=== PATIENT | female | born 1990 | race Caucasian/White ===

== ENCOUNTER 2017-04-12 13:16 | Inpatient (IN) | payer MEDICAID ==
[~2017-04-12] VITALS: Ht 157.5 cm; Wt 62.8 kg
[2017-04-12 13:21] VITALS: BP 112/63; PULSE 78; RESP 18; Ht 157.5 cm; Wt 62.8 kg
[2017-04-12 13:29] VITALS: RESP 18
--- NOTE | 2017-04-12 14:06 | TRIAGE ---
OB Triage Datetime Report Generated by CPN: 04/12/2017 14:06 Datetime: 04/12/2017 13:59 Maternal Assessment Level of Consciousness: Fully Conscious DTR's/Clonus: DTRs 1+ Headache: Denies Blurred Vision: No Respiratory Effort: Unlabored Breath Sounds, Left: Clear and Equal Breath Sounds, Right: Clear and Equal Nausea/Vomiting: Denies RUQ Epigastric Pain: Denies Facial Edema: None Labor Evaluation Frequency: 6-12 Monitor Mode: External Duration (sec)2399: 60-90 Quality: Mild Pattern: Normal: <= 5 Contractions in 10 Minutes Resting Tone Noank: Relaxed Heart Rate FHR Baseline Rate: 135 Monitor Mode: External US Variability: Moderate 6-25 bpm Accelerations: 15X15 Decelerations: None Category: Category I Pain Assessment Pain Scale: 8 Pain Presence: Intermittent Pain Type: Contraction Pain Location: Back Pain Goal: 3 Pain Relief Measures: Pain Medication Given Membrane Status: Intact Datetime: 04/12/2017 13:44 Maternal Assessment Level of Consciousness: Fully Conscious DTR's/Clonus: DTRs 1+ Headache: Denies Blurred Vision: No Respiratory Effort: Unlabored Breath Sounds, Left: Clear and Equal Breath Sounds, Right: Clear and Equal Nausea/Vomiting: Denies RUQ Epigastric Pain: Denies Facial Edema: None Labor Evaluation Frequency: 2-12 Monitor Mode: External Duration (sec)2399: 60-80 Quality: Mild Pattern: Normal: <= 5 Contractions in 10 Minutes Resting Tone Noank: Relaxed Heart Rate FHR Baseline Rate: 135 Monitor Mode: External US Variability: Moderate 6-25 bpm Accelerations: 15X15 Decelerations: None Category: Category I Pain Assessment Pain Scale: 8 Pain Presence: Constant Pain Type: Contraction Pain Location: Back Pain Goal: 3 Pain Relief Measures: Pain Medication Given Membrane Status: Intact Datetime: 04/12/2017 13:18 Vaginal Exam Dilatation (cms): 3.5 Effacement (%): 80 Station: -2 Exam By: KAYLEEN MCKINNEY Vaginal Bleeding: None Cervix, Consistency: Soft Cervix, Position: Midposition Presentation 'A': Cephalic Datetime: 04/12/2017 13:15 Assessment Type: Triage Maternal Assessment Level of Consciousness: Fully Conscious DTR's/Clonus: DTRs 2+; No Clonus Headache: Denies Blurred Vision: No Respiratory Effort: Unlabored; Regular Rhythm; Equal Expansion Breath Sounds, Left: Clear and Equal Breath Sounds, Right: Clear and Equal Nausea/Vomiting: Denies RUQ Epigastric Pain: Denies Lower Extremities Edema: None Degree: None Upper Extremities Edema: None Degree: None Facial Edema: None Fall Risk Assessment History of Falling: (0) No Secondary Diagnosis: (0) No Ambulatory Aid: (0) Bedrest/Nurse Assist IV Therapy: (0) No Gait: (0) Normal/Bedrest/Immobile Mental Status: (0) Oriented to Own Ability Fall Score: 0 Fall Risk Score Definition: No Risk: No action required Datetime: 04/12/2017 13:03 Time of Arrival: 04/12/2017 13:03 EGA: 38.5 Arrived By: Ambulatory Arrived From: Home Chief Complaint: PT CAME IN C/O UCS Movement: Present Contractions: Regular Time Contractions Began: 04/12/2017 09:00 Contractions: 5 Rupture of Membranes: Denies Vaginal Discharge: Denies Recent Sexual Intercouse: Denies Abdominal Trauma: Not Applicable Additional Patient Complaints: NONE Time Provider Notified: 04/12/2017 14:01 Provider Notified: KAREN Initial Plan: MONITOR AND VE
[2017-04-12] MEDS: LACTATED RINGER'S 1,000 ML IV SCH ×2 (15:13→20:02)
[2017-04-12] MEDS ORDERED: METHYLERGONOVINE 0.2 MG INJ IM PRN ×2 (15:30→21:30)
[2017-04-12] MEDS ORDERED: AMPICILLIN 2 GM/NS (PMX) 100 ML IV ONE (15:30)
[2017-04-12] MEDS ORDERED: CARBOPROST 250 MCG INJ IM PRN ×2 (15:30→21:30)
[2017-04-12] MEDS ORDERED: MISOPROSTOL 200 MCG TAB PR PRN ×2 (15:30→21:30)
[2017-04-12] MEDS ORDERED: OXYTOCIN 30 UNITS/LR 500 ML IV PRN ×2 (15:30→21:30)
[2017-04-12] MEDS ORDERED: LIDOCAINE 1% (MPF) 30 ML INJ INJ PRN (15:30)
[2017-04-12] MEDS ORDERED: HYDROCODONE/APAP (5/325) TAB PO PRN ×2 (15:30→21:30)
[2017-04-12] MEDS ORDERED: BUTORPHANOL 2 MG INJ IV PRN (15:30)
[2017-04-12] MEDS ORDERED: LACTATED RINGER'S 1,000 ML IV PRN (16:00)
[2017-04-12 16:20] LABS: BASOPHILS % 0.2 % (0.0-2.0); EOSINOPHILS % 0.1 % (0.0-7.0); HEMATOCRIT 30.9 % (37.0-47.0); HEMOGLOBIN 10.2 g/dl (12.0-16.0); LYMPHOCYTES # 1.7 10^3/ul (0.8-2.9); LYMPHOCYTES % 18.2 % (15.0-51.0); MEAN CORPUSCULAR HEMOGLOBIN 28.3 pg (29.0-33.0); MEAN CORPUSCULAR VOLUME 85.8 fl (82.0-101.0); MEAN PLATELET VOLUME 12.2 fl (7.4-10.4); MONOCYTE # 0.6 10^3/ul (0.3-0.9); MONOCYTES % 5.8 % (0.0-11.0); NEUTROPHIL # 7.1 10^3/ul (1.6-7.5); NEUTROPHILS % 75.2 % (39.0-77.0); PLATELET COUNT 227 10^3/UL (140-415); RED CELL DISTRIBUTION WIDTH 13.2 % (11.5-14.5); WHITE BLOOD COUNT 9.4 10^3/ul (4.8-10.8)
[2017-04-12 17:03] LABS: INR 0.95; PROTIME 12.7 Sec (12.2-14.2)
[2017-04-12 17:04] LABS: PARTIAL THROMBOPLASTIN TIME 27.3 Sec (25.0-35.0)
[2017-04-12] MEDS ORDERED: FENTAnyl 2MCG/ML-ROPIV 0.2% 100 ML ONE (17:45)
[2017-04-12] MEDS ORDERED: FENTAnyl 2MCG/ML-ROPIV 0.2% 100 ML BAG EPI SCH (18:00)
[2017-04-12] MEDS ORDERED: NALOXONE (0.4 MG/ML) INJ IV PRN (18:00)
--- NOTE | 2017-04-12 18:49 | HP ---
Date/Time of Note Date/Time of Note DATE: 04/12/17 TIME: 18:42 OB - History Hx of Present Free Text/Dictation 27 y.o A0 at 38w5d c/o u.c's q5min with intact membrane course was unevenful except UTI. initial exam 3-4/8o% -2 admitted for expectant management Chief Complaint: u.cs Estimated Due Date: Apr 21, 2017 : 3 Para: 2 Spontaneous : 0 Therapeutic : 0 Care: Limited Care Ultrasounds: Normal mid trimester US Obstetrical Complications: None Medical Complications: None Past Family/Social History * Past Medical, Surgical, Family and Obstetric Histories reviewed from chart. Blood Type: O+ Rubella: unknown RPR/VDRL: Unknown GBS Status: Unknown HBsAG: Unknown OB Admission Exam Vital Signs Vital Signs Vital Signs Date Time Temp Pulse Resp B/P Pulse Ox O2 Delivery O2 Flow Rate FiO2 04/12/17 13:29 98.6 18 99 Room Air 04/12/17 13:21 78 Physical Exam HEENT: WNL Heart: Rhythm Normal Lungs: Clear, Equal Abdomen: WNL Extremities: Normal Reflexes: Normal Cervical Dilatation: 4cm Effacement: 75% Station: -2 Membranes: Intact Amniotic Fluid: Unevaluable Accelerations: Accelerations Present Decelerations: No Decelerations Varibility: Moderate Contractions on Admission: 6-10 Minutes Apart Intensity: Moderate Last 72 hours Lab Results CBC & BMP 04/12/17 16:12 OB Assessment/Plan Reason for admission: active labor Other Assessment: IUP 38w5d Plan: Expectant Management JABIER JONES MD Apr 12, 2017 18:49
[2017-04-12] MEDS ORDERED: AMPICILLIN 1 GM/NS (PMX) 50 ML IV SCH (19:30)
[2017-04-12] MEDS ORDERED: OXYTOCIN 30 UNITS/LR 500 ML IV SCH ×2 (20:00)
[2017-04-12] MEDS ORDERED: IBUPROFEN 600 MG TAB PO PRN ×2 (20:00→22:00)
[2017-04-12] MEDS ORDERED: MINERAL OIL LIGHT 10 ML VIAL TOP ONE (20:30)
--- NOTE | 2017-04-12 21:28 | LDN ---
Date/Time of Note Date/Time of Note DATE: 04/12/17 TIME: 21:26 Delivery Summary of a viable baby girl weighing 2630 grams, or 5# 13 oz, 20.5" long, and with Apgars of 9/10. Weeks of Gestation 38w 5d Placenta Delivered: Spontaneously Meconium: none Episiotomy: No Perineal laceration: 0 Anesthesia type: Epidural Estimated blood loss: 150 Sponge & Needle done & correct: Yes All needle counts correct: Yes Any foreign bodies felt in the: No (vagina) Problems: Delivery Information Sex Sex: female Apgars 1 Minute: 9 5 Minute: 10 Suctioning Nose & mouth suctioned at lizabeth: Yes Delee suction performed: No Umbilical Cord Umbilical cord with: 3 Vessels Cord presentations: no nuchal cord Cord Blood was obtained: Yes Mother & Baby Disposition Disposition Mom & Baby to Maternity; Good: Yes Baby to NICU: No LUIS EDUARDO MACK MD Apr 12, 2017 21:28
[2017-04-12] MEDS ORDERED: LANOLIN 7 GM TUBE TOP PRN (21:30)
[2017-04-12 23:30] VITALS: BP 117/61; PULSE 69; RESP 21
[2017-04-13] MEDS: LACTATED RINGER'S 1,000 ML IV* SCH ×3 (01:44→13:23)
[2017-04-13 04:00] VITALS: BP 107/59; PULSE 62; RESP 20
[2017-04-13] MEDS: IBUPROFEN 600 MG TAB PO SCH ×4 (06:24→17:20)
[2017-04-13 08:32] VITALS: BP 104/71; PULSE 64; RESP 18
[2017-04-13 09:57] LABS: BASOPHILS % 0.2 % (0.0-2.0); EOSINOPHILS % 0.2 % (0.0-7.0); HEMATOCRIT 26.3 % (37.0-47.0); HEMOGLOBIN 8.3 g/dl (12.0-16.0); LYMPHOCYTES # 2.2 10^3/ul (0.8-2.9); LYMPHOCYTES % 22.8 % (15.0-51.0); MEAN CORPUSCULAR HEMOGLOBIN 27.3 pg (29.0-33.0); MEAN CORPUSCULAR HGB CONC 31.6 g/dl (32.0-37.0); MEAN CORPUSCULAR VOLUME 86.5 fl (82.0-101.0); MEAN PLATELET VOLUME 12.3 fl (7.4-10.4); MONOCYTE # 0.5 10^3/ul (0.3-0.9); MONOCYTES % 5.5 % (0.0-11.0); NEUTROPHIL # 6.8 10^3/ul (1.6-7.5); NEUTROPHILS % 70.9 % (39.0-77.0); PLATELET COUNT 186 10^3/UL (140-415); RED BLOOD COUNT 3.04 10^6/ul (4.20-5.40); RED CELL DISTRIBUTION WIDTH 13.2 % (11.5-14.5); WHITE BLOOD COUNT 9.6 10^3/ul (4.8-10.8)
[2017-04-13 12:00] VITALS: BP 109/63; PULSE 75; RESP 18
--- NOTE | 2017-04-13 12:19 | QN ---
Documentation Comment ppd1 pt d oing well vss exam wnl ppd1 continue care GISSELLE PITTMAN MD Apr 13, 2017 12:19
[2017-04-13] MEDS ORDERED: INFLUENZA VIRUS VACCINE 0.5 ML (DISPENSING) IM* ONE (16:00)
[2017-04-13 16:20] VITALS: BP 108/66; PULSE 75; RESP 19
[2017-04-13 20:00] VITALS: BP 118/75; PULSE 73; RESP 20
[2017-04-14 04:00] VITALS: BP 110/58; PULSE 69; RESP 19
[2017-04-14] MEDS: IBUPROFEN 600 MG TAB PO SCH ×3 (05:27→11:17)
[2017-04-14 08:20] VITALS: BP 107/65; PULSE 68; RESP 18
[2017-04-14] MEDS ORDERED: DIPHTH/TET/ACEL PERTUSS (ADULT) 0.5 ML VIAL IM* ONE (09:00)
[2017-04-14 14:08] LABS: RUBELLA ANTIBODY - IGG 3.71 index
[2017-04-14 16:10] VITALS: BP 114/65; PULSE 85; RESP 17
--- NOTE | 2017-04-14 18:00 | PD.PPDC ---
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 Diagnosis Final Diagnosis: s/p normal vaginal delivery Condition Patient Condition: Stable Diet Diet: Resume Regular Diet Activity/Restrictions Restrictions: No Exercising No Lifting Minimize Walking Minimize Stair-climbing No Sexual Activity Nothing in the Vagina No [place] No Tampons, douche Follow-up Follow-up with Physician: 2, Week/Weeks Return to clinic for [employer] Instructions: Fever greater than 101 Chills Worsening abdominal pain Excessive Vaginal Bleeding More than 2 pads per hour Unable to tolerate diet OB Instructions: Breast Tenderness Depression Blurried Vision Headache JABIER JONES MD Apr 14, 2017 18:00
--- NOTE | 2017-04-14 19:20 | DS ---
Date/Time of Note Date/Time of Note DATE: 04/14/17 TIME: 19:19 Obstetrical Discharge Record Final Diagnosis Final Diagnosis: Term delivered Vaginal Delivery Obstetrical Delivery: Spontaneous Complications Augmentation: No Induction: No Rupture of Membranes: No Condition on Discharge Physical Assessment Last Vitals: vss afebrile Voiding: Yes Bowel Movement: Yes Breast: Soft, non-tender Fundus: Firm Calf Tenderness: No Patient Condition: Stable JABIER JONES MD Apr 14, 2017 19:20
== END 2017-04-14 19:15 | disposition home or self-care (01) | DRG 775 ==
LOC: OBT 13:16 → L-D 13:18 → OBT 14:01 → L-D 14:01 → PP1 23:54
PROVIDERS: ADMIT Obstetrics & Gynecology; ATTEND Obstetrics & Gynecology
PROC: 10E0XZZ Delivery of Products of Conception, External Approach (ICD-10-PCS; principal; 2017-04-12)
DX: O80 Encounter for full-term uncomplicated delivery (principal); Z37.0 Single live birth; Z3A.38 38 weeks gestation of pregnancy
CPT/HCPCS: 62319; 85025; 85610; 85730; 86592; 86762; 86900; 86901; 87340; 90686; 90715; 99464; G0463; J0290; J2590; J3010; J7120

== ENCOUNTER → 2017-06-05 | Day surgery (SDC) | payer MEDICAID ==
[2017-06-04 15:47] VITALS: BMI 23.7
[~2017-06-05] VITALS: Ht 154.9 cm; Wt 55.2 kg
[2017-06-05 11:16] VITALS: Ht 154.9 cm; Wt 55.2 kg
[2017-06-05 11:24] VITALS: BP 101/60; PULSE 59; RESP 18
[2017-06-05 11:34] LABS: BASOPHIL # 0.1 10^3/ul (0.0-0.1); BASOPHILS % 0.7 % (0.0-2.0); EOSINOPHILS # 0.1 10^3/ul (0.0-0.5); EOSINOPHILS % 0.8 % (0.0-7.0); HEMATOCRIT 36.3 % (37.0-47.0); HEMOGLOBIN 11.6 g/dl (12.0-16.0); LYMPHOCYTES # 2.3 10^3/ul (0.8-2.9); LYMPHOCYTES % 31.6 % (15.0-51.0); MEAN CORPUSCULAR HEMOGLOBIN 26.6 pg (29.0-33.0); MEAN CORPUSCULAR VOLUME 83.3 fl (82.0-101.0); MEAN PLATELET VOLUME 11.8 fl (7.4-10.4); MONOCYTE # 0.6 10^3/ul (0.3-0.9); MONOCYTES % 8.4 % (0.0-11.0); NEUTROPHIL # 4.3 10^3/ul (1.6-7.5); NEUTROPHILS % 58.1 % (39.0-77.0); PLATELET COUNT 320 10^3/UL (140-415); RED BLOOD COUNT 4.36 10^6/ul (4.20-5.40); WHITE BLOOD COUNT 7.4 10^3/ul (4.8-10.8)
[2017-06-05 11:44] LABS: INR 1.03; PROTIME 13.5 Sec (12.2-14.2); PT RATIO 1.1
[2017-06-05 11:45] LABS: PARTIAL THROMBOPLASTIN TIME 33.9 Sec (25.0-35.0)
== END | disposition home or self-care (01) ==
LOC: SDS 10:05
PROVIDERS: ATTEND Obstetrics & Gynecology
DX: Z30.2 Encounter for sterilization (principal); Z53.8 Procedure and treatment not carried out for other reasons
CPT/HCPCS: 84703; 85025; 85610; 85730